=== PATIENT | female | born 1975 | race Caucasian/White ===

== ENCOUNTER 2022-02-01 07:55 | Emergency (ER) | payer MEDICAID ==
[~2022-02-01] VITALS: Ht 160 cm; Wt 49.9 kg
[2022-02-01 08:09] VITALS: BP 130/78
[2022-02-01 08:59] LABS: BASOPHILS % (AUTO) 0.6 % (0.0-2.0); EOSINOPHILS % (AUTO) 3.5 % (0.0-6.0); HEMATOCRIT 35 % (33-45); HEMOGLOBIN 11.5 g/dL (11.5-14.8); LYMPHOCYTES # (AUTO) 1.1 K/uL (0.8-4.8); LYMPHOCYTES % (AUTO) 21.6 % (20.0-44.0); MEAN CORPUSCULAR HGB CONC 33 g/dl (31.0-36.0); MEAN CORPUSCULAR VOLUME 91 fL (82-100); MONOCYTES # (AUTO) 0.4 K/uL (0.1-1.30); MONOCYTES % (AUTO) 8.5 % (2.0-12.0); NEUTROPHILS # (AUTO) 3.3 K/uL (1.8-8.9); NEUTROPHILS % (AUTO) 65.8 % (43.0-81.0); PLATELET COUNT (AUTO) 281 K/uL (150-450); RED BLOOD CELL COUNT(AUTO) 3.78 MIL/uL (4.0-5.2); WHITE BLOOD COUNT (AUTO) 5.1 K/uL (4.3-11.0)
[2022-02-01 09:17] LABS: ALBUMIN 3.7 g/dL (3.4-5.0); BILIRUBIN,TOTAL 0.3 mg/dL (0.2-1.0); CALCIUM, SERUM 8.8 mg/dL (8.5-10.1); CREATININE 0.6 mg/dL (0.6-1.3); POTASSIUM 4.6 mmol/L (3.5-5.1); TOTAL PROTEIN, SERUM 7.5 g/dL (6.4-8.2)
[2022-02-01 09:24] LABS: THYROID STIMULATING HORMONE 2.105 uIU/mL (0.358-3.74)
[2022-02-01] MEDS ORDERED: PRED50TA PO (10:41)
[2022-02-01] MEDS ORDERED: IBUP-1957 PO (10:41)
[2022-02-01] MEDS ORDERED: LEVO25TA7 PO (10:41)
== END 2022-02-01 10:54 | disposition home or self-care (01) ==
LOC: ER 08:00
DX: J02.9 Acute pharyngitis, unspecified (principal); E03.9 Hypothyroidism, unspecified
CPT/HCPCS: 36415; 80053-TC; 84439-TC; 84443-TC; 85025-TC

== ENCOUNTER 2023-06-15 07:24 | Emergency (ER) | payer MEDICAID ==
[~2023-06-15] VITALS: Ht 162.6 cm; Wt 56.2 kg
[~2023-06-15 07:24] MED LIST: IBUP-1957 PO; LEVO25TA7 PO; PRED50TA PO
[2023-06-15] MEDS ORDERED: BENZONATATE 100 MG CAPSULE PO PRN (08:30)
[2023-06-15] MEDS ORDERED: cetrizine 10 MG TABLET PO ONE (08:30)
[2023-06-15] MEDS ORDERED: cetrizine 10 MG TABLET ONE (09:17)
[2023-06-15] MEDS ORDERED: BENZONATATE 100 MG CAPSULE PO ONE (09:17)
[2023-06-15] MEDS ORDERED: BENZ-13 PO (12:48)
[2023-06-15] MEDS ORDERED: CETI-108 PO (12:48)
[2023-06-15 13:00] VITALS: BP 102/66; TEMP 98.4; O2SAT 100
== END 2023-06-15 13:00 | disposition home or self-care (01) ==
LOC: ER 07:24
DX: B34.9 Viral infection, unspecified (principal); R05.9 Cough, unspecified; E03.9 Hypothyroidism, unspecified; Z79.899 Other long term (current) drug therapy; Z20.822 Contact with and (suspected) exposure to COVID-19; Z88.1 Allergy status to other antibiotic agents
CPT/HCPCS: 99284; 71045; 87426; 87804 ×2; C9803